=== PATIENT | male | born 1990 | race African-American/Black ===

== ENCOUNTER 2022-07-20 19:20 | Emergency (ER) | payer MEDICAID, SELFPAY ==
[2022-07-20 20:26] VITALS: BP 147/71; PULSE 71; RESP 16; TEMP 36.8; O2SAT 100; BMI 34.5
== END 2022-07-20 21:44 | disposition left against medical advice (07) ==
PROVIDERS: Emergency Provider Emergency Medicine; PCP Emergency Medicine
DX: R10.9 Unspecified abdominal pain (principal); M54.50 Low back pain, unspecified; R51.9 Headache, unspecified
CPT/HCPCS: 99281; 99283